=== PATIENT | male | born 1995 | race Caucasian/White ===

== ENCOUNTER 2018-02-11 08:26 | Emergency (ER) | payer OTHER ==
[2018-02-11] MEDS ORDERED: MAG HYDROX/AL HYDROX/SIMETH 30 ML UDC PO STA (10:09)
[2018-02-11] MEDS ORDERED: LIDOCAINE VISCOUS 2% 15 ML UDC MM STA (10:09)
[2018-02-11] MEDS ORDERED: SUCRALFATE 1 GM/10 ML UDC PO STA (10:10)
--- NOTE | 2018-02-11 10:11 | ED Physician Documentation ---
History of Present Illness - Stated complaint Stated Complaint: CHEST PX/TIGHTNESS/SORE THROAT - Chief complaint Chief Complaint: General - History obtained from History obtained from: Patient - History of Present Illness Timing: Yesterday - Additonal information Additional information: 22-year-old male was eating a muffin yesterday and after he had a month and he drank some water the water came back up and he choked on it. He states that he has been having some issue with slow transit of food since then and he has some pain in the central portion of his chest every time he swallows something. He is not having shortness of breath. He is not having a fever or cough. He does state that he has had some issue with heartburn if he eats too much and that he has had some trouble with slow transit periodically for some time. He has never had anything get stuck and he has never had a cough up his secretions. He has been able to eat since yesterday but has pain every time he swallows. Review of Systems Constitutional: denies: Fever Eyes: denies: Decreased vision Ears: denies: Ear pain Nose: denies: Congestion Throat: denies: Sore throat Cardiac: reports: Chest pain / pressure. denies: Palpitations Respiratory: denies: Dyspnea, Cough GI: denies: Abdominal Pain, Nausea, Vomiting : denies: Dysuria, Frequency PD PAST MEDICAL HISTORY - Past Medical History Cardiovascular: None Respiratory: None Endocrine/Autoimmune: None GI: None : None HEENT: None Psych: None Musculoskeletal: None Derm: None - Past Surgical History Past Surgical History: No - Present Medications Home Medications: Ambulatory Orders Medication Instructions Recorded Confirmed Penicillin V Potassium 500 mg PO QID #40 tablet 03/22/15 Sucralfate [Carafate] 1 gm PO ACHS #30 tablet 02/11/18 - Allergies Allergies/Adverse Reactions: Allergies Allergy/AdvReac Type Severity Reaction Status Date / Time No Known Drug Allergies Allergy Verified 02/11/18 08:37 - Social History Does the pt smoke?: No Smoking Status: Never smoker Does the pt drink ETOH?: No Does the pt have substance abuse?: No - Immunizations Immunizations are current?: No - POLST Patient has POLST: No PD ED PE NORMAL - Vitals Vital signs reviewed: Yes (normal ) - General General: Alert and oriented X 3, No acute distress, Well developed/nourished - HEENT HEENT: Atraumatic, PERRL, EOMI - Neck Neck: Supple, no meningeal sign - Cardiac Cardiac: RRR, No murmur - Respiratory Respiratory: No respiratory distress, Clear bilaterally - Abdomen Abdomen: Soft, Non tender - Back Back: No CVA TTP, No spinal TTP - Derm Derm: Normal color, Warm and dry, No rash - Extremities Extremities: No deformity, No edema - Neuro Neuro: No motor deficit, No sensory deficit Eye Opening: Spontaneous Motor: Obeys Commands Verbal: Oriented GCS Score: 15 - Psych Psych: Normal mood, Normal affect Results - Vitals Vitals: Vital Signs - 24 hr 02/11/18 02/11/18 08:34 12:21 Temperature 36.2 C L Heart Rate 51 L 54 L Respiratory 16 18 Rate Blood Pressure 126/69 126/70 O2 Saturation 97 98 Oxygen O2 Source Room air - Rads (name of study) 2 veiw chest Radiology: Prelim report reviewed (Impression: Normal two-view chest radiography.), EMP read indepedently, See rad report PD MEDICAL DECISION MAKING - ED course Complexity details: reviewed results, re-evaluated patient, considered differential, d/w patient ED course: Patient is a 22-year-old male with a history of slow transit of food through a rough area for years and anything get stuck there previously. It does sound like last night he had a problem with something getting stuck and he aspirated. He does not have pulmonary symptoms now but continues to have pain in the esophagus with swallowing. He is administered a GI cocktail consisting of viscous lidocaine Mylanta and Carafate with some improvement in his pain. I discussed with the patient the need for follow-up with the GI and likely need for dilation and in addition I have encouraged the patient to take some Carafate and Pepcid for the next week to aid in healing of his esophagus. - Sepsis Event Vital Signs: Vital Signs - 24 hr 02/11/18 02/11/18 08:34 12:21 Temperature 36.2 C L Heart Rate 51 L 54 L Respiratory 16 18 Rate Blood Pressure 126/69 126/70 O2 Saturation 97 98 Oxygen O2 Source Room air Departure - Departure Disposition: 01 Home, Self Care Clinical Impression: Esophageal abrasion Qualifiers: Encounter type: initial encounter Qualified Code(s): S27.207S - Other injury of esophagus (thoracic part), initial encounter Condition: Stable Instructions: ED Foreign Body Esophageal Rslv Follow-Up: [facility] [Provider Group] Wali Donaldson MD [Provider Admit Priv/Credential] - Prescriptions: Sucralfate [Carafate] 1 gm PO ACHS #30 tablet Comments: Today it appears that you have an esophageal stricture and you got some food stuck in it yesterday and this is likely abraded your esophagus. This will take some time to heal and I recommend during this time you take some Carafate on a regular basis before meals and at bedtime and in addition to that take some Pepcid to reduce the acid in your stomach. You will need follow-up with the gastrointestinal specialist and will likely need a dilation of your esophagus. This should be done only when your esophagus is healed up. Discharge Date/Time: 02/11/18 12:21
--- NOTE | 2018-02-11 11:41 | XRAY Report ---
Procedure Date: 02/11/2018 Accession Number: [id number] / [id number] Procedure: XR - Chest 2 View X-Ray CPT Code: 49308 FULL RESULT: EXAM: CHEST RADIOGRAPHY EXAM DATE: 02/11/2018 10:33 AM. CLINICAL HISTORY: Aspiration/chest pain. COMPARISON: None. TECHNIQUE: 2 views. FINDINGS: Lungs/Pleura: No focal opacities evident. No pleural effusion. No pneumothorax. Normal volumes. Mediastinum: Heart and mediastinal contours are unremarkable. Other: None. IMPRESSION: Normal 2-view chest radiography. RADIA
[2018-02-11 12:22] VITALS: BP 126/70
== END 2018-02-11 12:21 | disposition home or self-care (01) ==
LOC: ED 08:26
DX: S27.818A Other injury of esophagus (thoracic part), initial encounter (principal)
CPT/HCPCS: 71046; 99283; A9270

== ENCOUNTER 2019-07-24 22:30 | Emergency (ER) | payer OTHER ==
[2019-07-24 22:51] LABS: BASOPHILS % (AUTO) 0.3 %; EOSINOPHILS # (AUTO) 0.1 10^3/uL (0.0-0.7); EOSINOPHILS % (AUTO) 1.1 %; HGB - HEMOGLOBIN 16.4 g/dL (14.0-18.0); LYMPHOCYTES # (AUTO) 2.5 10^3/uL (1.5-3.5); LYMPHOCYTES % (AUTO) 21.4 %; MEAN CORPUSCULAR HEMOGLOBIN 30.6 pg (27.0-31.0); MEAN CORPUSCULAR HGB CONC 32.6 g/dL (32.0-36.0); MEAN CORPUSCULAR VOLUME 93.8 fL (80.0-94.0); MEAN PLATELET VOLUME 10.9 fL (7.4-11.4); MONOCYTES # (AUTO) 1.2 10^3/uL (0.0-1.0); NEUTROPHILS # (AUTO) 7.8 10^3/uL (1.5-6.6); NEUTROPHILS % (AUTO) 66.9 %; PLT - PLATELET COUNT 290 10^3/uL (130-450); RED BLOOD COUNT 5.36 10^6/uL (4.70-6.10); RED CELL DISTRIBUTION WIDTH 13.2 % (12.0-15.0); WHITE BLOOD COUNT 11.7 x10^3/uL (4.8-10.8)
--- NOTE | 2019-07-24 23:01 | ED Physician Documentation ---
PD HPI ABD PAIN - Stated complaint Stated Complaint: ABD PX, DIARRHEA - Chief complaint Chief Complaint: Abd Pain - History obtained from History obtained from: Patient - History of Present Illness Timing - onset: How many days ago (10) Timing - details: Gradual onset, Waxing and waning Pain level now: 0 Quality: Cramping Location: All over / everywhere Improved by: Other (nothing) Worsened by: Eating Associated symptoms: Diarrhea. No: Nausea, Vomiting Similar symptoms before: Has not had sx before - Additional information Additional information: c/o approximately 10 days of diarrhea with cramping abdominal discomfort, distinctly worse with any PO intake but solids more than liquids. Denies n/v. He recently had a course of PO antibiotics after dental surgery. Review of Systems Constitutional: denies: Fever, Chills, Sweats Cardiac: reports: Reviewed and negative Respiratory: reports: Reviewed and negative GI: reports: Abdominal Pain, Diarrhea. denies: Nausea, Vomiting PD PAST MEDICAL HISTORY - Past Medical History Past Medical History: No Cardiovascular: None Respiratory: None Endocrine/Autoimmune: None GI: None : None HEENT: None Psych: None Musculoskeletal: None Derm: None - Past Surgical History Past Surgical History: No - Present Medications Home Medications: Ambulatory Orders Medication Instructions Recorded Confirmed Diphenoxylate/Atropine [Lomotil] 1 each PO QID PRN #14 tablet 07/25/19 Vancomycin [Vancocin] 125 mg PO QID #39 capsule 07/25/19 - Allergies Allergies/Adverse Reactions: Allergies Allergy/AdvReac Type Severity Reaction Status Date / Time No Known Drug Allergies Allergy Verified 07/24/19 22:37 - Social History Does the pt smoke?: No Smoking Status: Never smoker Does the pt drink ETOH?: Yes Does the pt have substance abuse?: No - Immunizations Immunizations are current?: Yes - POLST Patient has POLST: No PD ED PE NORMAL - Vitals Vital signs reviewed: Yes - General General: Alert and oriented X 3, No acute distress, Well developed/nourished - HEENT HEENT: Other (tacky/pasty mucous membranes) - Neck Neck: Supple, no meningeal sign - Cardiac Cardiac: RRR, No murmur - Respiratory Respiratory: No respiratory distress, Clear bilaterally - Abdomen Abdomen: Soft, Non tender, Non distended Results - Vitals Vitals: Vital Signs - 24 hr 07/24/19 07/25/19 22:30 00:27 Temperature 36.8 C 36.5 C Heart Rate 79 70 Respiratory 18 14 Rate Blood Pressure 131/89 H 121/75 O2 Saturation 99 99 Oxygen O2 Source Room air - Labs Labs: Laboratory Tests 07/24/19 07/24/19 07/25/19 22:46 22:46 00:11 WBC 11.7 H RBC 5.36 Hgb 16.4 Hct 50.3 MCV 93.8 MCH 30.6 MCHC 32.6 RDW 13.2 Plt Count 290 MPV 10.9 Neut # (Auto) 7.8 H Lymph # (Auto) 2.5 [place] # (Auto) 1.2 H Eos # (Auto) 0.1 Baso # (Auto) 0.0 Absolute Nucleated RBC 0.00 Nucleated RBC % 0.0 Sodium 140 Potassium 4.1 Chloride 99 L Carbon Dioxide 33 H Anion Gap 8.0 BUN 20 Creatinine 1.3 H Estimated GFR (MDRD) 69 L Glucose 94 Calcium 9.6 Total Bilirubin 0.7 AST 17 ALT 18 Alkaline Phosphatase 46 Total Protein 8.1 Albumin 4.8 Globulin 3.3 Albumin/Globulin Ratio 1.5 Lipase 31 Stl C. diff Tox B Gene POSITIVE A* PD MEDICAL DECISION MAKING - ED course Complexity details: reviewed results, re-evaluated patient, considered differential, d/w patient Departure - Departure Disposition: 01 Home, Self Care Clinical Impression: Clostridium difficile colitis Condition: Good Instructions: Clostridium Difficile Infec, ED Gastroenteritis Bacterial Follow-Up: [facility] [Provider Group] Prescriptions: Diphenoxylate/Atropine [Lomotil] 1 each PO QID PRN #14 tablet PRN Reason: Diarrhea Vancomycin [Vancocin] 125 mg PO QID #39 capsule
[2019-07-24 23:09] LABS: ALBUMIN 4.8 g/dL (3.2-5.5); ALBUMIN/GLOBULIN RATIO 1.5 (1.0-2.2); BILIRUBIN,TOTAL 0.7 mg/dL (0.2-1.0); CALCIUM 9.6 mg/dL (8.5-10.3); CREATININE 1.3 mg/dL (0.6-1.2); TOTAL PROTEIN 8.1 g/dL (6.7-8.2)
[2019-07-25] MEDS ORDERED: VANCOMYCIN 125 MG CAPSULE PO STA (01:58)
[2019-07-25] MEDS ORDERED: DIPHENOX/ATROPINE 2.5/0.025 MG TABLET PO STA (02:04)
[2019-07-25 03:47] VITALS: BP 120/69
== END 2019-07-25 02:10 | disposition home or self-care (01) ==
LOC: ED 22:30
DX: A04.72 Enterocolitis due to Clostridium difficile, not specified as recurrent (principal)
CPT/HCPCS: 36415; 80053; 83690; 85025; 87493; 99283; 99284; A9270; J8499